=== PATIENT | female | born 1965 | race African-American/Black ===

== ENCOUNTER 2017-09-29 04:43 | Emergency (ER) | payer SELFPAY ==
[~2017-09-29] VITALS: Ht 165.1 cm; Wt 68.0 kg
[2017-09-29] MEDS ORDERED: KETOROLAC 60MG/2ML VIAL IM ONE (07:30)
[2017-09-29 10:09] VITALS: BP 110/57
== END 2017-09-29 10:17 | disposition home or self-care (01) ==
LOC: ER 05:01
DX: M94.0 Chondrocostal junction syndrome [Tietze] (principal); G40.909 Epilepsy, unspecified, not intractable, without status epilepticus
CPT/HCPCS: 71045; 81025; 93005; 96372; 99284; J1885